=== PATIENT | female | born 1990 | race Caucasian/White ===

== ENCOUNTER 2020-03-04 05:50 | Day surgery (SDC) | payer BC, SELFPAY ==
[2020-02-26 08:18] LABS: BASOPHILS % (AUTO) 0.7 % (0.0-2.0); EOSINOPHILS % (AUTO) 0.8 % (0.0-4.0); HEMATOCRIT 36.9 % (36-48); HEMOGLOBIN 12.2 g/dL (12.0-16.0); LYMPHOCYTES # (AUTO) 1.5 K/uL (2.5-16.5); MEAN CORPUSCULAR HEMOGLOBIN 29 pg (27-31); MEAN CORPUSCULAR HGB CONC 33 g/dL (33-37); MEAN CORPUSCULAR VOLUME 86.2 fL (80-94); MONOCYTES # (AUTO) 0.4 K/uL (0.8-1.0); MONOCYTES % (AUTO) 7.8 % (1.7-9.3); NEUTROPHILS # (AUTO) 2.7 K/uL (1.8-7.7); NEUTROPHILS % (AUTO) 57.7 % (42.2-75.2); PLATELET COUNT (AUTO) 283 K/uL (140-450); RED BLOOD CELL COUNT(AUTO) 4.28 MIL/uL (4.20-5.40); RED CELL DISTRIBUTION WIDTH 13.6 % (11.6-13.7); WHITE BLOOD COUNT (AUTO) 4.7 K/uL (4.8-10.8)
[2020-02-26 09:00] LABS: ALBUMIN 3.9 g/dL (3.4-5.0); ANION GAP 11.5 (8-16); CARBON DIOXIDE 30.4 mmol/L (21-32); CREATININE 0.7 mg/dL (0.6-1.3); POTASSIUM 3.9 mmol/L (3.5-5.1); TOTAL BILIRUBIN 0.4 mg/dL (0.0-1.0)
[~2020-03-04] VITALS: Ht 165.1 cm; Wt 54.4 kg
[2020-03-04] MEDS ORDERED: BUPIVACAINE-MPF 0.25% 30 ML VIAL INJ ONE (08:02)
[2020-03-04] MEDS ORDERED: LIDOCAINE 1% 500 MG/50 ML VIAL ONE (08:03)
[2020-03-04] MEDS ORDERED: DESFLURANE 240 ML BTL INH ONE (08:22)
[2020-03-04] MEDS ORDERED: DEXAMETHASONE 4 MG/ML VIAL ONE (08:22)
[2020-03-04] MEDS ORDERED: KETOROLAC 30 MG/ML VIAL ONE (08:22)
[2020-03-04] MEDS ORDERED: ONDANSETRON 4 MG/2 ML VIAL ONE (08:22)
[2020-03-04] MEDS ORDERED: PROPOFOL 200 MG/20 ML VIAL IV ONE (08:22)
[2020-03-04] MEDS ORDERED: fentaNYL citrate 0.05 MG/ML VIAL ONE (08:22)
[2020-03-04] MEDS ORDERED: HYDROmorphone 1 MG/ML AMP IVP PRN (09:10)
[2020-03-04] MEDS ORDERED: MORPHINE SULFATE 2 MG/ML SYR IVP PRN (09:10)
[2020-03-04] MEDS ORDERED: ONDANSETRON 4 MG/2 ML VIAL IV PRN (09:10)
[2020-03-04] MEDS ORDERED: MORPHINE SULFATE 4 MG/ML SYR IV PRN (09:10)
[2020-03-04] MEDS ORDERED: HYDROcodone/APAP 5/325 MG 1 TAB TAB PO PRN (09:10)
[2020-03-04] MEDS ORDERED: METOCLOPRAMIDE 10 MG/2 ML INJ VIAL ONE (09:12)
== END 2020-03-04 10:48 | disposition home or self-care (01) ==
LOC: MDS 05:50 → MMU 05:53 → MDS 10:48
PROVIDERS: ATTEND Surgery
DX: D24.1 Benign neoplasm of right breast (principal); Z11.59 Encounter for screening for other viral diseases
CPT/HCPCS: 19120; 36415; 71045; 80053; 81025; 85025; 88307; J0690; J1100; J1885; J2001; J2405; J2704; J2765; J3010; J3490; J7060; J7120; U0003